=== PATIENT | male | born 1985 | race Two or more races ===

== ENCOUNTER 2019-06-14 13:47 | Emergency (ER) | payer OTHER ==
--- NOTE | 2019-06-14 14:21 | EDM.PDOC ---
ED HPI GENERAL MEDICAL PROBLEM - General Chief Complaint: Respiratory Problem Stated Complaint: FEVER Time Seen by Provider: 06/14/19 14:08 Source of Information: Reports: Patient, RN Notes Reviewed History Limitations: Reports: No Limitations - History of Present Illness INITIAL COMMENTS - FREE TEXT/NARRATIVE: 34-year-old gentleman presents emergency department today admits that he is just here to have a coronavirus test he felt feverish at home last night feels like he has a sore throat no other symptoms he has been ill for about 4 days with fatigue - Related Data Allergies Allergy/AdvReac Type Severity Reaction Status Date / Time No Known Allergies Allergy Verified 06/14/19 13:51 Home Meds: Home Meds metFORMIN [Glucophage] 500 mg PO BIDMEALS 06/14/19 [History] Past Medical History Endocrine/Metabolic History: Reports: Diabetes, Type II, Obesity/BMI 30+ - Past Surgical History Head Surgeries/Procedures: Reports: None Endocrine Surgical History: Reports: None Musculoskeletal Surgical History: Reports: Other (See Below) Other Musculoskeletal Surgeries/Procedures:: ACL surgery left knee Dermatological Surgical History: Reports: None Social & Family History - Tobacco Use Smoking Status *Q: Former Smoker Used Tobacco, but Quit: Yes Month/Year Tobacco Last Used: 2016 Second Hand Smoke Exposure: No - Caffeine Use Caffeine Use: Reports: Coffee, Energy Drinks - Recreational Drug Use Recreational Drug Use: No ED ROS GENERAL - Review of Systems Review Of Systems: See Below (5) Constitutional: Reports: Fever (Feverish at home) HEENT: Reports: Throat Pain Respiratory: Reports: Cough Cardiovascular: Reports: No Symptoms GI/Abdominal: Reports: No Symptoms : Reports: No Symptoms ED EXAM, GENERAL - Physical Exam Exam: See Below Exam Limited By: No Limitations General Appearance: Alert, WD/WN, No Apparent Distress Ears: Normal External Exam, Normal Canal, Hearing Grossly Normal, Normal TMs Nose: Normal Inspection, Normal Mucosa, No Blood Throat/Mouth: Normal Inspection, Normal Lips, Normal Teeth, Normal Gums, Normal Oropharynx, Normal Voice, No Airway Compromise Head: Atraumatic, Normocephalic Neck: Normal Inspection, Supple, Non-Tender, Full Range of Motion Respiratory/Chest: No Respiratory Distress, Lungs Clear, Normal Breath Sounds, No Accessory Muscle Use, Chest Non-Tender Cardiovascular: Regular Rate, Rhythm, No Murmur Course - Vital Signs Last Recorded V/S: Last Vital Signs Temp 98.3 F 06/14/19 13:56 Pulse 87 06/14/19 13:56 Resp 18 06/14/19 13:56 BP 128/75 06/14/19 13:56 Pulse Ox 98 06/14/19 13:56 Departure - Departure Time of Disposition: 14:19 Disposition: Home, Self-Care 01 Condition: Good Clinical Impression: Viral syndrome - Discharge Information Instructions: Viral Respiratory Infection, [id number] Referrals: PCP,None [Primary Care Provider] - Additional Instructions: Symptomatic care with Tylenol and Motrin as needed for fever control, please followup with your primary care provider in 3-5 days if not better, please call return to the emergency department with worsening of symptoms. Sepsis Event Note - Evaluation Sepsis Screening Result: No Definite Risk - Focused Exam Vital Signs: Vital Signs Temp Pulse Resp BP Pulse Ox 06/14/19 13:56 98.3 F 87 18 128/75 98 06/14/19 13:50 98.3 F 87 18 128/75 98 Date Exam was Performed: 06/14/19 Time Exam was Performed: 14:17 - Assessment/Plan Plan: Assessment Acuity = acute Site and laterality = viral syndrome Etiology = unknown Manifestations = none Location of injury = Home Lab values = none Plan Recommend symptomatic care Tylenol Motrin as needed for fever control, please followup with your primary care provider in 3-5 days if not better, please call return to the emergency department with worsening of symptoms. This note was dictated using [employer] voice recognition software please call with any questions on syntax or grammar.
== END 2019-06-14 14:26 | disposition home or self-care (01) ==
LOC: JP.ED 13:47
DX: B34.9 Viral infection, unspecified (principal); Z87.891 Personal history of nicotine dependence
CPT/HCPCS: 99282; 99283

== ENCOUNTER 2020-01-13 17:59 | Emergency (ER) | payer OTHER ==
--- NOTE | 2020-01-13 18:53 | EDM.PDOC ---
ED HPI GENERAL MEDICAL PROBLEM - General Chief Complaint: Respiratory Problem Stated Complaint: COVID SYMPTOMS SOB, FEVER Time Seen by Provider: 01/13/20 18:43 Source of Information: Reports: Patient, RN Notes Reviewed History Limitations: Reports: No Limitations - History of Present Illness INITIAL COMMENTS - FREE TEXT/NARRATIVE: 34-year-old gentleman presents emergency department a complaint of Covid testing he did have a family member who was positive and he would like to be tested he is having cough and fever no shortness of breath at this time. He requests Covid testing only - Related Data Allergies Allergy/AdvReac Type Severity Reaction Status Date / Time No Known Allergies Allergy Verified 01/13/20 18:16 Home Meds: Home Meds metFORMIN [Glucophage] 500 mg PO BIDMEALS 06/14/19 [History] Past Medical History Musculoskeletal History: Reports: None Endocrine/Metabolic History: Reports: Diabetes, Type II, Obesity/BMI 30+ - Past Surgical History Head Surgeries/Procedures: Reports: None Endocrine Surgical History: Reports: None Musculoskeletal Surgical History: Reports: Other (See Below) Other Musculoskeletal Surgeries/Procedures:: ACL surgery left knee Dermatological Surgical History: Reports: None Social & Family History - Tobacco Use Tobacco Use Status *Q: Never Tobacco User - Caffeine Use Caffeine Use: Reports: Coffee, Energy Drinks - Recreational Drug Use Recreational Drug Use: No ED ROS GENERAL - Review of Systems Review Of Systems: See Below Constitutional: Reports: No Symptoms HEENT: Reports: No Symptoms Respiratory: Reports: No Symptoms Cardiovascular: Reports: No Symptoms GI/Abdominal: Reports: No Symptoms ED EXAM, GENERAL - Physical Exam Exam: See Below Exam Limited By: No Limitations General Appearance: Alert, WD/WN, No Apparent Distress Respiratory/Chest: No Respiratory Distress Course - Vital Signs Last Recorded V/S: Last Vital Signs Temp 100.1 F 01/13/20 18:13 Pulse 107 H 01/13/20 18:13 Resp 20 01/13/20 18:13 BP 138/87 01/13/20 18:13 Pulse Ox 98 01/13/20 18:13 - Orders/Labs/Meds Orders: Active Orders 24 hr Category Date Time Status CORONAVIRUS COVID-19, ZOHAIB Routine Lab 01/13/20 18:49 Ordered Departure - Departure Time of Disposition: 18:52 Disposition: Home, Self-Care 01 Condition: Fair Clinical Impression: Viral syndrome - Discharge Information Instructions: Viral Illness, Adult Referrals: PCP,None [Primary Care Provider] - Additional Instructions: Your results should be available in 2 to 3 days, we will contact you with results recommend self-isolation follow-up primary care in 10 to 14 days if no improvement call return to the emergency department worsening of symptoms Sepsis Event Note (ED) - Evaluation Sepsis Screening Result: No Definite Risk - Focused Exam Vital Signs: Vital Signs Temp Pulse Resp BP Pulse Ox 01/13/20 18:13 100.1 F 107 H 20 138/87 98 - My Orders Last 24 Hours: My Active Orders 01/13/20 18:49 CORONAVIRUS COVID-19, ZOHAIB Routine - Assessment/Plan Last 24 Hours: My Active Orders 01/13/20 18:49 CORONAVIRUS COVID-19, ZOHAIB Routine Plan: Assessment Acuity = acute Site and laterality = viral syndrome Etiology = unknown Manifestations = cough Location of injury = Home Lab values = Covid testing pending Plan We will contact you when results are available recommend self-isolation follow- up primary care 10-14 days if not better This note was dictated using [employer] voice recognition software please call with any questions on syntax or grammar.
== END 2020-01-13 19:01 | disposition home or self-care (01) ==
LOC: JP.ED 17:59
DX: U07.1 COVID-19 (principal); E66.9 Obesity, unspecified; E11.9 Type 2 diabetes mellitus without complications; Z68.34 Body mass index [BMI] 34.0-34.9, adult; Z79.84 Long term (current) use of oral hypoglycemic drugs
CPT/HCPCS: 99283; U0002

== ENCOUNTER 2020-01-20 18:09 | Emergency (ER) | payer OTHER ==
[2020-01-20] MEDS ORDERED: Ketorolac 60 MG/2 ML SDV IM ONE (19:08)
[2020-01-20] MEDS ORDERED: Codeine/guaiFENesin 100mg-10 MG/5 ML Syrup 10 ML Cup PO ONE (19:08)
[2020-01-20] MEDS ORDERED: Aluminum Hydroxide/Magnesium Hydroxide/Simethicone Susp 30 ML Cup PO ONE (19:12)
--- NOTE | 2020-01-20 19:14 | EDM.PDOC ---
ED HPI GENERAL MEDICAL PROBLEM - General Chief Complaint: Respiratory Problem Stated Complaint: COVID Time Seen by Provider: 01/20/20 19:00 Source of Information: Reports: Patient, RN History Limitations: Reports: No Limitations - History of Present Illness INITIAL COMMENTS - FREE TEXT/NARRATIVE: 34 yo male presents for a pain in the epigastric area associated with coughing and deep breathing. He is a known Covid + patient for the past week. He took acetaminophen before arrival. He was seen in the clinic yesterday and was told he had pneumonia per a CXR and given doxycycline. His pain is worse since he started the doxycycline. Cough is nonproductive. Is a little dizzy with standing. Onset: Gradual Onset Date: 01/17/20 Duration: Day(s):, Getting Worse Location: Reports: Abdomen (upper abd/lower chest) Quality: Reports: Ache Severity: Moderate Improves with: Reports: Medication Worsens with: Reports: Breathing, Other (coughing) Context: Reports: Other (Covid +) Associated Symptoms: Reports: Chest Pain (lower chest/upper abd), Cough, Fever/Chills, Malaise. Denies: Nausea/Vomiting, Shortness of Breath Treatments GLOBAL LOGISTICS ANALYST: Reports: Acetaminophen Upper Abdomen Pain Score (Numeric/FACES): 10 - Related Data Allergies Allergy/AdvReac Type Severity Reaction Status Date / Time No Known Allergies Allergy Verified 01/20/20 18:54 Home Meds: Home Meds . [Unable to Verify Home Med List] 01/20/20 [History] Past Medical History Musculoskeletal History: Reports: None Endocrine/Metabolic History: Reports: Diabetes, Type II, Obesity/BMI 30+ - Past Surgical History Head Surgeries/Procedures: Reports: None Endocrine Surgical History: Reports: None Musculoskeletal Surgical History: Reports: Other (See Below) Other Musculoskeletal Surgeries/Procedures:: ACL surgery left knee Dermatological Surgical History: Reports: None Social & Family History - Tobacco Use Tobacco Use Status *Q: Never Tobacco User - Caffeine Use Caffeine Use: Reports: Coffee - Recreational Drug Use Recreational Drug Use: No ED ROS GENERAL - Review of Systems Review Of Systems: See Below Constitutional: Reports: Fever, Chills, Malaise HEENT: Reports: No Symptoms Respiratory: Reports: Cough, Other (lower chest/upper abdomen with breathing/coughing). Denies: Shortness of Breath, Wheezing, Pleuritic Chest Pain, Sputum, Hemoptysis Cardiovascular: Reports: Lightheadedness (with standing) Endocrine: Reports: No Symptoms GI/Abdominal: Reports: Abdominal Pain (upper, okby epigastrium). Denies: Black Stool, Bloody Stool, Constipation, Diarrhea, Distension, Flatus, Hematemesis, Hematochezia, Melena, Nausea, Vomiting : Reports: No Symptoms Musculoskeletal: Reports: No Symptoms Skin: Reports: No Symptoms Neurological: Reports: No Symptoms ED EXAM, GENERAL - Physical Exam Exam: See Below Exam Limited By: No Limitations General Appearance: Alert, WD/WN, No Apparent Distress Eye Exam: Bilateral Eye: Normal Inspection Ears: Normal External Exam, Normal Canal, Hearing Grossly Normal Ear Exam: Bilateral Ear: Auricle Normal, Canal Normal, TM normal Nose: Normal Inspection, No Blood Throat/Mouth: Normal Inspection, Normal Lips, Normal Oropharynx, Normal Voice, No Airway Compromise Head: Atraumatic, Normocephalic Neck: Normal Inspection Respiratory/Chest: No Respiratory Distress, No Accessory Muscle Use, Crackles (scattered). No: Respiratory Distress, Decreased Breath Sounds, Rhonchi, Wheezing, Accessory Muscle Use, Retractions Cardiovascular: Regular Rate, Rhythm, No Edema GI/Abdominal: Normal Bowel Sounds, Soft, Tender (epigastrium). No: Non-Tender, Distended, Guarding, Rigid, Rebound, Abnormal Bowel Sounds Back Exam: Normal Inspection. No: CVA Tenderness (R), CVA Tenderness (L) Extremities: Normal Inspection, Normal Range of Motion, Non-Tender, No Pedal Edema Neurological: Alert, Oriented, CN II-XII Intact, Normal Cognition, No Motor/Sensory Deficits Psychiatric: Normal Affect, Normal Mood Skin Exam: Warm, Dry, Intact, Normal Color, No Rash Course - Vital Signs Last Recorded V/S: Last Vital Signs Temp 38.2 C H 01/20/20 19:02 Pulse 112 H 01/20/20 19:02 Resp 24 H 01/20/20 19:02 BP 141/88 H 01/20/20 19:02 Pulse Ox 99 01/20/20 19:02 - Orders/Labs/Meds Labs: Laboratory Tests 01/20/20 01/20/20 Range/Units 19:30 19:30 WBC 9.0 (4.5-11.0) K/uL RBC 5.52 (4.30-5.90) M/uL Hgb 15.4 H (12.0-15.0) g/dL Hct 45.5 (40.0-54.0) % MCV 82 (80-98) fL MCH 28 (27-31) pg MCHC 34 (32-36) % Plt Count 173 (150-400) K/uL Sodium 136 L (140-148) mmol/L Potassium 3.8 (3.6-5.2) mmol/L Chloride 101 (100-108) mmol/L Carbon Dioxide 25 (21-32) mmol/L Anion Gap 13.8 (5.0-14.0) mmol/L BUN 12 (7-18) mg/dL Creatinine 1.2 (0.8-1.3) mg/dL Est Cr Clr Drug Dosing 65.72 mL/min Estimated GFR (MDRD) > 60 (>60) Glucose 117 H (74-106) mg/dL Calcium 8.1 L (8.5-10.1) mg/dL Meds: Medications Discontinued Medications Generic Name Dose Route Start Last Admin Trade Name Patrickq PRN Reason Stop Dose Admin Al Hydroxide/Mg Hydroxide 30 ml 01/20/20 19:12 01/20/20 19:29 Mag-Al Plus PO 01/20/20 19:13 30 ml ONETIME ONE Administration Guaifenesin/Codeine Phosphate 10 ml 01/20/20 19:08 01/20/20 19:29 Robitussin Ac PO 01/20/20 19:09 10 ml ONETIME ONE Administration Ketorolac Tromethamine 60 mg 01/20/20 19:08 01/20/20 19:29 Toradol IM 01/20/20 19:09 60 mg ONETIME ONE Administration - Re-Assessments/Exams Free Text/Narrative Re-Assessment/Exam: 01/20/20 19:52 Feeling better after our interventions. Departure - Departure Time of Disposition: 20:00 Disposition: Home, Self-Care 01 Condition: Fair Clinical Impression: COVID-19 Gastritis Qualifiers: Gastritis type: unspecified gastritis Chronicity: acute Gastritis bleeding: without bleeding Qualified Code(s): K29.00 - Acute gastritis without bleeding - Discharge Information *PRESCRIPTION DRUG MONITORING PROGRAM REVIEWED*: No *COPY OF PRESCRIPTION DRUG MONITORING REPORT IN PATIENT ARLIN: No Instructions: COVID-19 Frequently Asked Questions, Prevent the Spread of COVID- 19 if You Are Sick - [facility]AMED [facility] Referrals: PCP,None [Primary Care Provider] - Forms: ED Department Discharge Additional Instructions: Take acetaminophen 1000 mg every 6 hrs for pain/fever control. Drink ample fluids. Isolate yourself to prevent spread. Consider taking zinc 25-50 mg daily to boost your immune system. Take vitamin D 4000 IU daily to boost your immunity. Take one enteric coated aspirin daily to prevent blood clots from Covid. Take Maalox 30 ml after meals and at bedtime to settle/heal your stomach. Use Robitussin AC as needed for cough. F/U with a provider of your choice in the clinic. Sepsis Event Note (ED) - Focused Exam Vital Signs: Vital Signs Temp Pulse Resp BP Pulse Ox 01/20/20 19:02 38.2 C H 112 H 24 H 141/88 H 99 01/20/20 18:36 38.2 C H 112 H 24 H 141/88 H 99
== END 2020-01-20 20:25 | disposition home or self-care (01) ==
LOC: JP.ED 18:09
DX: K29.00 Acute gastritis without bleeding (principal); U07.1 COVID-19; E11.9 Type 2 diabetes mellitus without complications; E66.9 Obesity, unspecified; Z68.33 Body mass index [BMI] 33.0-33.9, adult
CPT/HCPCS: 36415; 80048; 85027; 96372; 99284; A9270; J1885

== ENCOUNTER 2020-06-25 19:07 | Emergency (ER) | payer OTHER ==
--- NOTE | 2020-06-25 20:10 | CRLCT ---
INDICATION: Recurring headaches and blurred vision. TECHNIQUE: Scanning of the head was performed without IV contrast material. Coronal and sagittal reconstructions were obtained. COMPARISON: Head CT of 05/21/2014. FINDINGS: No acute hemorrhage, parenchymal attenuation abnormality, or mass effect is demonstrated. Differentiation between the spaulding matter and white matter is preserved. The ventricles and other subarachnoid spaces are within normal limits. No calvarial abnormality is evident. The visualized paranasal and mastoid sinuses are clear. IMPRESSION: Negative noncontrast head CT. Please note that all CT scans at this facility use dose modulation, iterative reconstruction, and/or weight-based dosing when appropriate to reduce radiation dose to as low as reasonably achievable. Dictated by Osvaldo Lopez MD @ Jun 25 2020 8:04PM Signed by Dr. Osvaldo Lopez @ Jun 25 2020 8:09PM
[2020-06-25] MEDS ORDERED: Ketorolac 60 MG/2 ML SDV IM ONE (20:21)
--- NOTE | 2020-06-25 20:27 | EDM.PDOC ---
ED HPI GENERAL MEDICAL PROBLEM - General Chief Complaint: Headache Stated Complaint: HEADACHE,LEFT EYE PAIN, ARM PAIN Time Seen by Provider: 06/25/20 19:31 Source of Information: Reports: Patient, Family History Limitations: Reports: No Limitations - History of Present Illness INITIAL COMMENTS - FREE TEXT/NARRATIVE: 35-year-old male was been having headaches and left visual blurring intermittent for the past several weeks. He also developed a hemorrhage in his cornea on the left side which was nontraumatic. He is extremely concerned that he is having a stroke. No neurologic deficits or peripheral weakness. No nausea or vomiting. He has a redeveloping headache behind his left eye and some developing blurred vision which is intermittent. He was seen at the clinic, and eye exam was done as well as a general exam and he was reassured. He has not seen his accessioner for the last 8 months. He arrives tonight because again he has a headache and some mild blurred vision on the left side. Onset: Other (Intermittent for the last few weeks) Duration: Week(s): (2 weeks) Location: Reports: Head (Periorbital left side) Quality: Reports: Ache, Stabbing Severity: Moderate Improves with: Reports: Other (Aspirin helps) Worsens with: Reports: None Associated Symptoms: Reports: Headaches, Malaise, Other (Left-sided blurred vision). Denies: Confusion, Chest Pain, Cough, Diaphoresis, Fever/Chills, Nausea/Vomiting headache Pain Score (Numeric/FACES): 10 - Related Data Allergies Allergy/AdvReac Type Severity Reaction Status Date / Time No Known Allergies Allergy Verified 06/25/20 19:12 Home Meds: Home Meds NK [No Known Home Meds] 06/25/20 [History] Past Medical History Musculoskeletal History: Reports: None Psychiatric History: Reports: Depression Endocrine/Metabolic History: Reports: Diabetes, Type II, Obesity/BMI 30+ - Infectious Disease History Infectious Disease History: Reports: Novel Coronavirus - Past Surgical History Head Surgeries/Procedures: Reports: None Endocrine Surgical History: Reports: None Musculoskeletal Surgical History: Reports: Other (See Below) Other Musculoskeletal Surgeries/Procedures:: ACL surgery left knee Dermatological Surgical History: Reports: None Social & Family History - Tobacco Use Tobacco Use Status *Q: Never Tobacco User - Caffeine Use Caffeine Use: Reports: Coffee ED ROS GENERAL - Review of Systems Review Of Systems: See Below Constitutional: Denies: Fever, Chills HEENT: Reports: Vision Change (Left-sided intermittent blurred vision), Other (Scleral hemorrhage left side) Respiratory: Reports: No Symptoms Cardiovascular: Reports: No Symptoms GI/Abdominal: Reports: Nausea (Mild intermittent nausea, no vomiting) : Reports: No Symptoms Musculoskeletal: Reports: No Symptoms. Denies: Neck Pain Skin: Reports: No Symptoms Neurological: Reports: Headache. Denies: Dizziness, Paresthesia, Change in Speech, Gait Disturbance Psychiatric: Reports: No Symptoms - Physical Exam Exam: See Below Exam Limited By: No Limitations General Appearance: Alert, No Apparent Distress Eye Exam: Left Eye: Conjunctival Injection (Patient does have a conjunctival and scleral hemorrhage mostly medial to the iris), Bilateral Eye: EOMI, PERRL Head Exam: Atraumatic Neck: Supple, Non-Tender Respiratory/Chest: No Respiratory Distress Cardiovascular: Regular Rate, Rhythm Neuro Exam (Abbreviated): Alert, Oriented, No Motor/Sensory Deficits Extremities: Normal Inspection Psychiatric: Anxious Skin Exam: Warm, Dry Course - Vital Signs Last Recorded V/S: Last Vital Signs Temp 97.9 F 06/25/20 19:17 Pulse 66 06/25/20 19:17 Resp 16 06/25/20 19:17 BP 143/88 H 06/25/20 19:17 Pulse Ox 98 06/25/20 19:17 - Orders/Labs/Meds Meds: Medications Discontinued Medications Generic Name Dose Route Start Last Admin Trade Name Freq PRN Reason Stop Dose Admin Ketorolac Tromethamine 60 mg 06/25/20 20:21 06/25/20 20:30 Ketorolac 60 Mg/2 Ml Sdv IM 06/25/20 20:22 60 mg ONETIME ONE Administration - Re-Assessments/Exams Free Text/Narrative Re-Assessment/Exam: 06/26/20 00:27 CT the head was ordered which was normal Departure - Departure Time of Disposition: 21:14 Disposition: Home, Self-Care 01 Clinical Impression: Migraine, Scleral hemorrhage of left eye - Discharge Information Instructions: Migraine Headache, [id number], Subconjunctival Hemorrhage Referrals: PCP,None [Primary Care Provider] - Forms: ED Department Discharge Care Plan Goals: Rest, fluids, use ibuprofen or naproxen for headache, and call your eye doctor on Saturday for an eye exam. Return anytime if worsening such as persistent vomiting or worsening pain or loss of vision. Sepsis Event Note (ED) - Evaluation Sepsis Screening Result: No Definite Risk - Focused Exam Vital Signs: Vital Signs Temp Pulse Resp BP Pulse Ox 06/25/20 19:17 97.9 F 66 16 143/88 H 98 06/25/20 19:15 97.9 F 66 16 143/88 H 98
== END 2020-06-25 21:20 | disposition home or self-care (01) ==
LOC: JP.ED 19:07
DX: G43.909 Migraine, unspecified, not intractable, without status migrainosus (principal); H57.89 Other specified disorders of eye and adnexa; E66.9 Obesity, unspecified; E11.9 Type 2 diabetes mellitus without complications; Z86.16 Personal history of COVID-19; Z68.33 Body mass index [BMI] 33.0-33.9, adult
CPT/HCPCS: 70450; 96372; 99284; J1885; 99283

== ENCOUNTER 2022-06-05 07:15 | Emergency (ER) | payer BC, OTHER ==
[2022-06-05 08:25] LABS: CORONAVIRUS COVID-19 NAA POSITIVE (NEGATIVE)
== END 2022-06-05 08:38 | disposition home or self-care (01) ==
LOC: JP.ED 07:15
DX: U07.1 COVID-19 (principal); E11.9 Type 2 diabetes mellitus without complications; E66.9 Obesity, unspecified; Z68.32 Body mass index [BMI] 32.0-32.9, adult; Z86.16 Personal history of COVID-19
CPT/HCPCS: 0241U; 71046; 99282; 99285

== ENCOUNTER 2022-07-12 20:48 | Emergency (ER) | payer BC ==
[2022-07-12] MEDS ORDERED: LORazepam 1 MG Tab PO ONE ×2 (21:36→22:22)
[2022-07-12 22:09] LABS: ESTIMATED GFR 72 mL/min (>60)
[2022-07-12] MEDS ORDERED: metFORMIN 500 MG Tab PO ONE ×2 (22:18→22:23)
== END 2022-07-12 22:39 | disposition home or self-care (01) ==
LOC: JP.ED 20:48
DX: F41.9 Anxiety disorder, unspecified (principal); E11.65 Type 2 diabetes mellitus with hyperglycemia; E66.9 Obesity, unspecified; Z68.30 Body mass index [BMI] 30.0-30.9, adult; Z79.84 Long term (current) use of oral hypoglycemic drugs
CPT/HCPCS: 36415; 80053; 81001; 82947; 84484; 85025; 93010; 99283; 99285; A9270

== ENCOUNTER 2024-02-09 23:47 | Emergency (ER) | payer BC ==
[2024-02-10 00:17] LABS: BASOPHILS ABSOLUTE AUTO 0.05 K/uL (0.00-0.10); BASOPHILS PERCENT AUTO 0.7 % (0.1-1.3); EOSINOPHILS ABSOLUTE AUTO 0.21 K/uL (0.00-0.40); EOSINOPHILS PERCENT AUTO 2.9 % (0.0-5.4); HEMATOCRIT 43.1 % (38.4-49.7); HEMOGLOBIN 15.7 g/dL (12.9-16.9); IMMATURE GRAN ABSOLUTE AUTO 0.02 K/uL (0.00-0.23); IMMATURE GRAN PERCENT AUTO 0.3 % (0.0-0.7); LYMPHOCYTES ABSOLUTE AUTO 2.75 K/uL (0.8-3.3); LYMPHOCYTES PERCENT AUTO 38.3 % (11.4-47.7); MEAN CORPUSCULAR HEMOGLOBIN 30.1 pg (31.6-35.5); MEAN CORPUSCULAR HGB CONC 36.4 g/dL (31.6-35.5); MEAN CORPUSCULAR VOLUME 82.7 fL (81.4-99.0); MONOCYTES ABSOLUTE AUTO 0.51 K/uL (0.20-0.90); MONOCYTES PERCENT AUTO 7.1 % (3.3-12.6); NEUTROPHILS ABSOLUTE AUTO 3.64 K/uL (1.0-7.6); NEUTROPHILS PERCENT AUTO 50.7 % (40.0-78.1); PLATELET COUNT,PLT 191 K/uL (130-375); RED BLOOD CELL COUNT 5.21 M/uL (4.14-5.76); WHITE BLOOD CELL COUNT,WBC 7.2 K/uL (3.2-11.0)
[2024-02-10 00:41] LABS: A/G RATIO 1.1 (1.2-2.2); ALANINE AMINOTRANSFERASE,ALT 51 U/L (12-78); ALBUMIN 3.7 g/dL (3.4-5.0); ALKALINE PHOSPHATASE 260 U/L (46-116); ASPARTATE AMNIOTRANSFERASE,AST 10 U/L (15-37); BILIRUBIN TOTAL 0.4 mg/dL (0.2-1.0); BLOOD UREA NITROGEN,BUN 18 mg/dL (7-18); CALCIUM 9.3 mg/dL (8.5-10.1); CARBON DIOXIDE,CO2 27 mmol/L (21-32); CHLORIDE,CL 99 mmol/L (100-108); CREATININE 1.5 mg/dL (0.8-1.3); EST CRCL DRUG DOSING (CG) 50.56 mL/min; ESTIMATED GFR 60 mL/min (>60); SODIUM,NA 136 mmol/L (140-148)
[2024-02-10 00:44] LABS: GLUCOSE RANDOM 485 mg/dL (74-106)
[2024-02-10 01:07] LABS: HEMOGLOBIN A1C 12.4 % (4.5-6.2)
[2024-02-10] MEDS: glipiZIDE 5 MG Tab.ER PO SCH (01:31)
[2024-02-10] MEDS: glipiZIDE 2.5 MG Tab.ER PO SCH (01:32)
== END 2024-02-10 01:34 | disposition home or self-care (01) ==
LOC: JP.ED 23:47
DX: E11.65 Type 2 diabetes mellitus with hyperglycemia (principal); Z86.16 Personal history of COVID-19
CPT/HCPCS: 36415; 80053; 82009; 83036; 83605; 85025; 99284; A9270